=== PATIENT | male | born 1975 ===

== ENCOUNTER 2019-10-23 17:41 | Inpatient (IN) ==
[2019-10-23] MEDS ORDERED: HEPARIN/NACL 0.9% 2 UNITS/ML 500 ML IV ONE ×2 (18:21→18:22)
[2019-10-23] MEDS ORDERED: LIDOCAINE 1% 20 ML VIAL ONE (18:21)
[2019-10-23] MEDS ORDERED: fentaNYL 100 MCG/2 ML VIAL ONE (18:21)
[2019-10-23] MEDS ORDERED: MIDAZOLAM 2 MG/2 ML VIAL ONE (18:22)
[2019-10-23] MEDS ORDERED: SODIUM CHLORIDE 0.9% 1,000 ML IV SCH ×2 (18:30)
[2019-10-23] MEDS ORDERED: ALTEPLASE 12 MG in SODIUM CHLORIDE 0.9% 240 ML IV SCH (18:30)
[2019-10-23] MEDS ORDERED: LABETALOL 20 MG/4 ML SYRINGE IV PRN (21:09)
[2019-10-23] MEDS ORDERED: hydrALAZINE 20 MG/1 ML VIAL IV PRN (21:09)
[2019-10-23 21:14] LABS: INR 1.1; PT Patient Result 12.2 SECS (9.8-11.9); Partial Thromboplastin Time 32.2 SECS (23.9-33.8)
[2019-10-23] MEDS: LOSARTAN 50 MG TABLET PO SCH (21:24)
[2019-10-23] MEDS: carvediloL 25 MG TABLET PO SCH (21:24)
[2019-10-23] MEDS ORDERED: ACETAMINOPHEN 325 MG TABLET PO PRN (21:27)
[2019-10-24] MEDS ORDERED: MORPHINE 4 MG/1 ML VIAL IV PRN (04:57)
[2019-10-24 05:00] LABS: INR 1.1; PT Patient Result 12.2 SECS (9.8-11.9)
[2019-10-24 09:01] LABS: Basophils % 0.1 % (0.0-0.8); Eosinophils # 0.2 10*3/uL (0.0-0.87); Eosinophils % 2.3 % (0.00-10.9); Hematocrit 34.9 VOL% (42.0-52.0); Hemoglobin 11.1 GM/DL (14.0-18.0); Immature Granulocytes % 0.4 %; Immature Granulocytes Absolute 0.03 #; Lymphocytes # 1.4 10*3/uL (1.4-4.0); Lymphocytes % 19.9 % (21.2-54.2); Mean Corpuscular HGB Conc 31.8 GM/DL (32-36); Mean Corpuscular Volume 94.6 FL (87-102); Mean Platelet Volume 9.8 FL (9.6-12.0); Monocytes % 15.5 % (1.7-12.7); Neutrophils % 61.8 % (38.7-73.9); Platelet Count 169 T/CUMM (130-400); Red Blood Count 3.69 MC/CUMM (3.8-5.5); Red Cell Distribution Width 13.5 % (9.3-17.3)
[2019-10-24 09:23] LABS: Albumin 2.2 G/DL (3.4-5.0); Bilirubin,Total 0.9 MG/DL (0.2-1.0); Calcium 8.4 MG/DL (8.5-10.1); Osmolality,Calculated 279.4 MOS/KG (273-304); Total Protein 6.8 G/DL (6.4-8.3)
[2019-10-24 09:25] LABS: Troponin I 1.29 NG/ML (0.00-0.045)
[2019-10-24 09:49] LABS: Partial Thromboplastin Time 31.6 SECS (23.9-33.8)
[2019-10-24] MEDS: carvediloL 25 MG TABLET PO SCH ×2 (11:05→17:40)
[2019-10-24] MEDS: LOSARTAN 50 MG TABLET PO SCH ×2 (11:05→21:00)
[2019-10-24] MEDS ORDERED: ONDANSETRON 4 MG/2 ML VIAL IM PRN (18:25)
[2019-10-24] MEDS ORDERED: ONDANSETRON 4 MG/2 ML VIAL IV PRN (18:38)
[2019-10-24] MEDS ORDERED: GLUCAGON 1 MG VIAL IM PRN (19:17)
[2019-10-24] MEDS ORDERED: DEXTROSE 50% 25 GM/50 ML VIAL IV PRN (19:17)
[2019-10-24] MEDS: APIXABAN 5 MG TABLET PO SCH (21:00)
[2019-10-24] MEDS: INSULIN LISPRO 100 UNIT/ML SUBCUT SCH (21:00)
[2019-10-24 23:05] LABS: Partial Thromboplastin Time 32.8 SECS (23.9-33.8)
[2019-10-25] MEDS: carvediloL 25 MG TABLET PO SCH ×2 (08:00→16:50)
[2019-10-25] MEDS: APIXABAN 5 MG TABLET PO SCH ×2 (08:00→20:25)
[2019-10-25] MEDS: LOSARTAN 50 MG TABLET PO SCH ×2 (08:00→20:25)
[2019-10-25] MEDS: INSULIN LISPRO 100 UNIT/ML SUBCUT SCH ×4 (09:27→20:25)
[2019-10-25 10:58] LABS: Basophils % 0.2 % (0.0-0.8); Eosinophils # 0.2 10*3/uL (0.0-0.87); Eosinophils % 3.3 % (0.00-10.9); Hematocrit 33.4 VOL% (42.0-52.0); Hemoglobin 10.2 GM/DL (14.0-18.0); Immature Granulocytes % 0.2 %; Immature Granulocytes Absolute 0.01 #; Lymphocytes # 1.2 10*3/uL (1.4-4.0); Lymphocytes % 21.7 % (21.2-54.2); Mean Corpuscular HGB Conc 30.5 GM/DL (32-36); Mean Corpuscular Volume 98.8 FL (87-102); Monocytes % 13.3 % (1.7-12.7); Neutrophils % 61.3 % (38.7-73.9); Platelet Count 173 T/CUMM (130-400); Red Blood Count 3.38 MC/CUMM (3.8-5.5); Red Cell Distribution Width 13.5 % (9.3-17.3); White Blood Count 5.5 T/CUMM (4-12)
[2019-10-25 11:30] LABS: Albumin 2.2 G/DL (3.4-5.0); Bilirubin,Total 0.5 MG/DL (0.2-1.0); Calcium 8.6 MG/DL (8.5-10.1); Osmolality,Calculated 278.7 MOS/KG (273-304)
[2019-10-25 11:31] LABS: Partial Thromboplastin Time 33.6 SECS (23.9-33.8)
[2019-10-25] MEDS ORDERED: FUROSEMIDE 20 MG/2 ML VIAL ONE (15:46)
[2019-10-25] MEDS: ZINC GLUCONATE 50 MG TABLET PO SCH (20:25)
[2019-10-25] MEDS: ASCORBIC ACID 500 MG TABLET PO SCH (20:25)
[2019-10-25 21:23] LABS: Partial Thromboplastin Time 27.3 SECS (23.9-33.8)
[2019-10-26 06:57] LABS: Basophils % 0.4 % (0.0-0.8); Eosinophils # 0.2 10*3/uL (0.0-0.87); Eosinophils % 3.7 % (0.00-10.9); Hematocrit 31.8 VOL% (42.0-52.0); Hemoglobin 9.7 GM/DL (14.0-18.0); Immature Granulocytes % 0.6 %; Immature Granulocytes Absolute 0.03 #; Lymphocytes # 1.6 10*3/uL (1.4-4.0); Mean Corpuscular HGB Conc 30.5 GM/DL (32-36); Mean Corpuscular Volume 98.1 FL (87-102); Mean Platelet Volume 10.1 FL (9.6-12.0); Monocytes % 13.7 % (1.7-12.7); Neutrophils % 51.6 % (38.7-73.9); Platelet Count 179 T/CUMM (130-400); Red Blood Count 3.24 MC/CUMM (3.8-5.5); Red Cell Distribution Width 13.3 % (9.3-17.3); White Blood Count 5.4 T/CUMM (4-12)
[2019-10-26 07:25] LABS: Calcium 8.5 MG/DL (8.5-10.1); Osmolality,Calculated 279.5 MOS/KG (273-304)
[2019-10-26 07:30] LABS: Anisocytosis 1+; Platelet Estimate Normal
[2019-10-26] MEDS: INSULIN LISPRO 100 UNIT/ML SUBCUT SCH ×3 (09:02→17:56)
[2019-10-26] MEDS: APIXABAN 5 MG TABLET PO SCH (09:35)
[2019-10-26] MEDS: ZINC GLUCONATE 50 MG TABLET PO SCH (09:35)
[2019-10-26] MEDS: carvediloL 25 MG TABLET PO SCH ×2 (09:36→17:56)
[2019-10-26] MEDS: LOSARTAN 50 MG TABLET PO SCH (09:36)
[2019-10-26] MEDS: ASCORBIC ACID 500 MG TABLET PO SCH (09:36)
[2019-10-26 09:42] LABS: Partial Thromboplastin Time 35.4 SECS (23.9-33.8)
[2019-10-26 09:57] LABS: CKMB % 2.2 %
[2019-10-26 10:00] LABS: Troponin I 0.63 NG/ML (0.00-0.045)
[2019-10-26 12:22] VITALS: BP 130/71
== END 2019-10-26 17:10 | disposition home or self-care (01) | DRG 175 ==
LOC: N.CC 18:23 → N.2E 10-25 15:54
PROVIDERS: ADMIT Internal Medicine Cardiovascular Disease; ATTEND Internal Medicine Cardiovascular Disease